=== PATIENT | female | born 1955 | race Caucasian/White ===

== ENCOUNTER 2020-02-23 16:08 | Emergency (ER) | payer SELFPAY ==
[~2020-02-23] VITALS: Ht 152.4 cm; Wt 79.5 kg
--- NOTE | 2020-02-23 16:24 | NUR ---
PT BROUGHT IN BY [facility]. PT STATES SHE SLIPPED AND FELL ON HER SHOE TODAY. DENIES LOC OR HITTING HER HEAD. REMEMBERS EVENT. PT COMPLAINING OF BACK, LEFT LOWER EXT AND L KNEE PAIN. PT HAS HX OF HTN AND L KNEE PAIN. PT PLACED ON MONITOR. WILL CONTINUE TO MONITOR.
--- NOTE | 2020-02-23 16:27 | NUR ---
NEMO BARRY [phone]
[2020-02-23] MEDS ORDERED: HYDROcodone/APAP 5/325 TABLET ONE (18:13)
[2020-02-23] MEDS ORDERED: HYDROcodone/APAP 5/325 TABLET PO ONE (18:30)
[2020-02-23 18:34] VITALS: BP 166/64
== END 2020-02-23 18:37 | disposition home or self-care (01) ==
LOC: ED 18:30
DX: S83.92XA Sprain of unspecified site of left knee, initial encounter (principal); S39.012A Strain of muscle, fascia and tendon of lower back, initial encounter; S76.012A Strain of muscle, fascia and tendon of left hip, initial encounter; G89.11 Acute pain due to trauma; W01.0XXA Fall on same level from slipping, tripping and stumbling without subsequent striking against object, initial encounter; Y93.89 Activity, other specified; Y92.098 Other place in other non-institutional residence as the place of occurrence of the external cause; Y99.8 Other external cause status
CPT/HCPCS: 72110; 93005; 99284